=== PATIENT | female | born 1955 | race Caucasian/White ===

== ENCOUNTER 2023-11-13 07:54 | Emergency (ER) | payer MEDICARE, BC, SELFPAY ==
[2023-11-13 07:55] VITALS: BP 171/104
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
[2023-11-13] MEDS: XANAX 0.5 MG PO (08:33)
[2023-11-13 09:50] VITALS: BP 102/57
--- NOTE | 2023-11-13 09:50 | EDRN ---
Reviewed discharge instructions with patient and her . Patient stated that she's feeling better after the Xanax. Taken to Crisis in a wheelchair.
== END 2023-11-13 09:50 ==
LOC: EMR 07:54
PROVIDERS: EMERGENCY PHYSICIAN Emergency Medicine
DX: F43.21 Adjustment disorder with depressed mood (principal); Z63.9 Problem related to primary support group, unspecified
CPT/HCPCS: 99283

== ENCOUNTER → 2023-12-03 06:37 | Outpatient (REF) | payer MEDICARE, BC, SELFPAY | LOC: MRI 3T 06:37 | PROVIDERS: ATTENDING PHYSICIAN Physician Assistant Surgical | DX: M25.562 Pain in left knee (principal) | CPT/HCPCS: 73721 ==

== ENCOUNTER → 2024-03-22 08:32 | Outpatient (REF) | payer MEDICARE, BC, SELFPAY | LOC: HWWDC 08:32 | PROVIDERS: ATTENDING PHYSICIAN Internal Medicine | DX: Z12.31 Encounter for screening mammogram for malignant neoplasm of breast (principal) | CPT/HCPCS: 77063; 77067 ==

== ENCOUNTER → 2024-03-26 08:38 | Outpatient (REF) | payer MEDICARE, BC, SELFPAY | LOC: HWRAD 08:38 | PROVIDERS: ATTENDING PHYSICIAN Internal Medicine | DX: R91.8 Other nonspecific abnormal finding of lung field (principal) | CPT/HCPCS: 71250 ==